=== PATIENT | female | born 1965 | race Caucasian/White ===

== ENCOUNTER 2017-10-17 11:33 | Emergency (ER) | payer BC ==
[2017-10-17 11:35] VITALS: BP 135/74; PULSE 74; RESP 16; TEMP 97.4; O2SAT 98
[2017-10-17] MEDS ORDERED: SODIUM CHLOR 0.9% 1000 ML INJ 1,000 ML IV ONE (12:30)
[2017-10-17] MEDS ORDERED: TETANUS/DIPHTHERIA TOXOID ADULT 0.5 ML VIAL IM ONE (12:30)
[2017-10-17 12:48] LABS: AUTOMATED NEUTROPHIL # 6.4 TH/MM3 (1.8-7.7); BASOPHIL % 0.6 % (0.0-2.0); EOSINOPHIL % 0.4 % (0.0-4.0); HEMATOCRIT 35.6 % (35.0-46.0); HEMOGLOBIN 12.1 GM/DL (11.6-15.3); LYMPH % 12.5 % (9.0-44.0); MEAN CELL VOLUME 92.6 FL (80.0-100.0); MEAN CORPUSCULAR HEMOGLOBIN 31.4 PG (27.0-34.0); MEAN PLATELET VOLUME 8.2 FL (7.0-11.0); MONO % 4.7 % (0.0-8.0); MONOCYTE # 0.4 TH/MM3 (0-0.9); NEUT % 81.8 % (16.0-70.0); PLATELET COUNT 230 TH/MM3 (150-450); RED BLOOD COUNT 3.84 MIL/MM3 (4.00-5.30); RED CELL DISTRIBUTION WIDTH 13.5 % (11.6-17.2); WHITE BLOOD COUNT 7.8 TH/MM3 (4.0-11.0)
[2017-10-17 13:03] LABS: ALBUMIN 4.2 GM/DL (3.4-5.0); AST (GOT) 195 U/L (15-37); BICARBONATE 22.3 MEQ/L (21.0-32.0); BLOOD UREA NITROGEN 24 MG/DL (7-18); CALCIUM 8.7 MG/DL (8.5-10.1); CHLORIDE 109 MEQ/L (98-107); CREATININE 1.09 MG/DL (0.50-1.00); GLOMERULAR FILTRATION RATE 53 ML/MIN (>89); GLUCOSE,RANDOM 95 MG/DL (74-106); SODIUM (NA) 142 MEQ/L (136-145)
[2017-10-17 13:09] LABS: ALKALINE PHOSPHATASE 54 U/L (45-117); ALT (GPT) 97 U/L (10-53); TOTAL BILIRUBIN ADULT 0.6 MG/DL (0.2-1.0); TOTAL PROTEIN 7.5 GM/DL (6.4-8.2)
--- NOTE | 2017-10-17 13:15 | RADRPT ---
EXAM DATE: 10/17/2017 1:07 PM EDT AGE/SEX: 52 years / Female INDICATIONS: Syncopal episode with fall. Laceration over right eyebrow. CLINICAL DATA: This is the patient's initial encounter. Patient reports that signs and symptoms have been present for 1 day and indicates a pain score of 8/10. MEDICAL/SURGICAL HISTORY: None. None. RADIATION DOSE: 56.35 CTDI (mGy) COMPARISON: None. TECHNIQUE: CT of the head without contrast. Using automated exposure control and adjustment of the mA and/or kV according to patient size, radiation dose was kept as low as reasonably achievable to ob tain optimal diagnostic quality images. FINDINGS: Cerebrum: The ventricles are normal for age. No evidence of midline shift, mass lesion, hemorrhage or acute infarction. No extraaxial fluid collections are seen. Posterior Fossa: The cerebellum and brainstem are intact. The 4th ventricle is midline. The cerebe llopontine angle is unremarkable. Extracranial: The visualized portion of the orbits is intact. 11 mm oval-shaped cutaneous nodule inv olving the right high parietal soft tissues. Likely relate to a sebaceous cyst. Right periorbital sof t tissue swelling. Skull: The calvaria is intact. No evidence of skull fracture. CONCLUSION: 1. No acute intracranial abnormality. 2. Right periorbital soft tissue swelling. Electronically signed by: Man Cain MD 10/17/2017 1:13 PM EDT
--- NOTE | 2017-10-17 13:48 | PD ---
HPI Chief Complaint: Head Injury Time Seen by Provider: 11:46 Travel History International Travel<30 days: No Contact w/Intl Traveler<30days: No Traveled to known affect area: No History of Present Illness HPI Is a 52-year-old woman presents emergency department complaining of headache. She was working on a roof when she began to feel lightheaded dizzy. [place] like she was dehydrated. Went down with sitting on the bed when she got lightheaded and passed out. She fell and hit her head on the versus small lack to right brow. She has some headache. At that she fell family members or bystanders describe some shaking activity. Patient states she has had shaking-like activity with passing out in the past, usually associated with severe pain. No history of seizures. She otherwise had been feeling generally well and healthy before this. No numbness tingling weakness. No severe neck pain. History Past Medical History Medical History: Denies Significant Hx LMP: 10/17/17 Social History Alcohol Use: No Tobacco Use: No Allergies-Medications (Allergen,Severity, Reaction): Coded Allergies: Penicillins (Verified Allergy, Severe, 10/17/17) Reported Meds & Prescriptions Reported Meds & Active Scripts Active No Active Prescriptions or Reported Medications Review of Systems Except as stated in HPI: all other systems reviewed are Neg Physical Exam Narrative GENERAL: Well-appearing 52-year-old woman, no acute distress. SKIN: Focused skin assessment warm/dry. HEAD: Atraumatic. Normocephalic. EYES: Pupils equal and round. No scleral icterus. No injection or drainage. ENT: No nasal bleeding or discharge. Mucous membranes pink and moist. Small laceration of the right brow, about 1 cm. A little bit of surrounding contusion and swelling. NECK: Trachea midline. No JVD. Full painless range of motion. CARDIOVASCULAR: Regular rate and rhythm. No murmur appreciated. RESPIRATORY: No accessory muscle use. Clear to auscultation. Breath sounds equal bilaterally. GASTROINTESTINAL: Abdomen soft, non-tender, nondistended. Hepatic and splenic margins not palpable. MUSCULOSKELETAL: No obvious deformities. No clubbing. No cyanosis. No edema. NEUROLOGICAL: Awake and alert. No obvious cranial nerve deficits. Motor grossly within normal limits. Normal speech. PSYCHIATRIC: Appropriate mood and affect; insight and judgment normal. Data Data Last Documented VS Vital Signs Date Time Temp Pulse Resp B/P (MAP) Pulse Ox O2 Delivery O2 Flow Rate FiO2 10/17/17 11:35 97.4 74 16 135/74 (94) [address] Brain W/O Iv Contrast(Rout) (10/17/17 ) Electrocardiogram (10/17/17 ) Complete Blood Count With Diff (10/17/17 12:13) Comprehensive Metabolic Panel (10/17/17 12:13) Iv Access Insert/Monitor (10/17/17 12:13) Sodium Chlor 0.9% 1000 Ml Inj (Ns 1000 M (10/17/17 12:30) Tetanus/Diphtheria Tox Adult (Tetanus/Di (10/17/17 12:30) Labs Laboratory Tests Test 10/17/17 12:25 White Blood Count 7.8 TH/MM3 Red Blood Count 3.84 MIL/MM3 Hemoglobin 12.1 GM/DL Hematocrit 35.6 % Mean Corpuscular Volume 92.6 FL Mean Corpuscular Hemoglobin 31.4 PG Mean Corpuscular Hemoglobin Concent 34.0 % Red Cell Distribution Width 13.5 % Platelet Count 230 TH/MM3 Mean Platelet Volume 8.2 FL Neutrophils (%) (Auto) 81.8 % Lymphocytes (%) (Auto) 12.5 % Monocytes (%) (Auto) 4.7 % Eosinophils (%) (Auto) 0.4 % Basophils (%) (Auto) 0.6 % Neutrophils # (Auto) 6.4 TH/MM3 Lymphocytes # (Auto) 1.0 TH/MM3 Monocytes # (Auto) 0.4 TH/MM3 Eosinophils # (Auto) 0.0 TH/MM3 Basophils # (Auto) 0.0 TH/MM3 CBC Comment DIFF FINAL Differential Comment Blood Urea Nitrogen 24 MG/DL Creatinine 1.09 MG/DL Random Glucose 95 MG/DL Total Protein 7.5 GM/DL Albumin 4.2 GM/DL Calcium Level 8.7 MG/DL Alkaline Phosphatase 54 U/L Aspartate Amino Transf (AST/SGOT) 195 U/L Alanine Aminotransferase (ALT/SGPT) 97 U/L Total Bilirubin 0.6 MG/DL Sodium Level 142 MEQ/L Potassium Level 4.0 MEQ/L Chloride Level 109 MEQ/L Carbon Dioxide Level 22.3 MEQ/L Anion Gap 11 MEQ/L Estimat Glomerular Filtration Rate 53 ML/MIN MDM Medical Decision Making Medical Screen Exam Complete: Yes Emergency Medical Condition: Yes Interpretation(s) CT head negative for acute intracranial injury Labs show mildly elevated liver enzymes Differential Diagnosis Head injury, laceration, ICH, fracture, other Narrative Course Medical decision making Is a 52-year-old woman presents to the emergency department after syncopal episode with a fall and a head laceration. Some shaking episode afterward but does not really seem like seizure activity. History of the same of what sounds like vasovagal syncope. CT head negative. We glued the laceration on her and she appears well. I informed her about her abnormal liver enzymes. Unclear etiology. She will follow-up. Procedures Procedure Narrative Laceration repair: Area was cleansed with sterile saline and gauze. Tissue adhesive was used to reapproximate the wound on the right brow. Patient tolerated well. Diagnosis Primary Impression: Syncope Additional Impression: Laceration of brow without complication Additional Instructions: Keep wound clean and dry. He can wash with normally with soap and water. Do not apply antibiotic ointment to wound as it will dissolve the tissue glue. Tissue glue will dissolve on its own for another week or so. Do not pick at the wound. Follow-up with your primary doctor for follow-up of your abnormal liver test. Return to the emergency department for any new or worsening symptoms per Scripts No Active Prescriptions or Reported Meds Disposition: 01 DISCHARGE HOME Condition: Stable Hever Garcia MD October 17, 2017 13:48
--- NOTE | 2017-10-18 13:30 | EKG ---
Date Performed: 10/17/2017 Time Performed: 12:21:33 PTAGE: 52 years EKG: Sinus rhythm NORMAL ECG NO PREVIOUS TRACING DOCTOR: Jaron Benoit Interpretating Date/Time 10/18/2017 13:29:17
== END 2017-10-17 14:00 | disposition home or self-care (01) ==
LOC: NEPD 11:33
DX: R55 Syncope and collapse (principal); S01.81XA Laceration without foreign body of other part of head, initial encounter; R42 Dizziness and giddiness; W01.10XA Fall on same level from slipping, tripping and stumbling with subsequent striking against unspecified object, initial encounter; Z23 Encounter for immunization; Z88.0 Allergy status to penicillin
CPT/HCPCS: 12011; 70450; 80053; 85025; 90471; 90714; 93005; 99283; J7030